=== PATIENT | female | born 1940 | race Caucasian/White ===

== ENCOUNTER 2016-05-29 09:19 | Emergency (ER) | payer OTHER ==
[~2016-05-29] VITALS: Ht 165.1 cm; Wt 88.6 kg
[~2016-05-29 09:19] MED LIST: ALBU8.5H3 INH; ASPI-515 PO; BUTA1CAP57 PO; CITA20TA9 PO; ESTR0.5T PO; LISI-167 PO; LOVA20TA2 PO; MEDR2.5T PO; PANT40TA3 PO; TURM500C7 PO
[2016-05-29 09:21] VITALS: BP 169/93
== END 2016-05-29 10:06 | disposition home or self-care (01) ==
LOC: ED 09:41
DX: T78.3XXA Angioneurotic edema, initial encounter (principal); I10 Essential (primary) hypertension; E78.00 Pure hypercholesterolemia, unspecified; K21.9 Gastro-esophageal reflux disease without esophagitis; X58.XXXA Exposure to other specified factors, initial encounter; Y93.89 Activity, other specified; Y92.89 Other specified places as the place of occurrence of the external cause; Y99.8 Other external cause status
CPT/HCPCS: 99283

== ENCOUNTER 2018-02-12 20:50 | Emergency (ER) | payer OTHER ==
[~2018-02-12] VITALS: Ht 157.5 cm; Wt 86.9 kg
[~2018-02-12 20:50] MED LIST changes: -ALBU8.5H3 INH; +ALBU8.5H8 INH
[2018-02-12] MEDS ORDERED: FAMOTIDINE 20 MG TABLET PO ONE (21:30)
[2018-02-12] MEDS ORDERED: DIPHENHYDRAMINE 25 MG CAPSULE PO ONE (21:30)
--- NOTE | 2018-02-12 22:06 | NUR ---
MD TO BEDSIDE FOR PT EVAL. PT REPORTS HAVING H/A, SAME PRIOR. PT HAS LONG HX OF MIGRAINES. PT DENIES TRAUMA OR INJURY. PT A/OX4, BREATHING E/U, CONVERSING WELL.
[2018-02-12] MEDS ORDERED: PROCHLORPERAZINE 5 MG/ML, 2ML IM ONE (22:30)
[2018-02-12] MEDS ORDERED: KETOROLAC 30 MG/1 ML IM ONE (22:30)
[2018-02-12] MEDS ORDERED: ACETAMINOPHEN 500 MG TABLET PO ONE (22:30)
[2018-02-12] MEDS ORDERED: KETOROLAC 30 MG/1 ML ONE (22:31)
[2018-02-12] MEDS ORDERED: PROCHLORPERAZINE 5 MG/ML, 2ML ONE (22:31)
[2018-02-12] MEDS ORDERED: ACETAMINOPHEN 500 MG TABLET ONE (22:32)
[2018-02-12 22:34] LABS: BASOPHILS % (AUTO) 1 % (0-1); EOSINOPHILS # (AUTO) 0.24 x10^3/uL (0-0.4); EOSINOPHILS % (AUTO) 3 % (1-7); LYMPHOCYTES # (AUTO) 2.35 x10^3/uL (1-3.4); LYMPHOCYTES % (AUTO) 27 % (22-44); MD NO; MEAN CORPUSCULAR HEMOGLOBIN 25.1 pg (27.0-34.8); MEAN CORPUSCULAR HGB CONC 32.4 g/dL (32.4-35.8); MEAN CORPUSCULAR VOLUME 77.7 fL (80-100); MEAN PLATELET VOLUME 8.6 fL (7.4-10.4); MONOCYTES # (AUTO) 0.79 x10^3/uL (0.2-0.8); MONOCYTES % (AUTO) 9 % (2-9); NEUTROPHILS # (AUTO) 5.28 x10^3/uL (1.8-6.8); NEUTROPHILS % (AUTO) 60 % (42-75); PLATELET COUNT 244 x10^3/uL (130-400); RED BLOOD COUNT 4.67 x10^6/uL (3.82-5.3); RED CELL DISTRIBUTION WIDTH 17.2 % (9.6-15.2)
--- NOTE | 2018-02-12 22:44 | NUR ---
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 PT RECIEVED MEDS PER ORDERS, SEE EMAR. PT RESTING COMFORTABLY, PLACED ON CARDIAC AND VS MONITORING. PT STATES SHE IS ALSO HAVING NUMBNESS TO MOUTH, TOES, AND FINGERS STARTING YESTERDAY. PT REPORTS SIMILAR NUMBNESS AND TINGLING WITH MIGRAINES IN THE PAST. PT A/OX4, BREATHING E/U. CONVERSING WELL. DENIES WEAKNESS. WILL CONTINUE TO MONITOR.
[2018-02-12 22:45] LABS: ALANINE AMINOTRANSFERASE 28 U/L (12-78); ALBUMIN 3.7 g/dL (3.4-5.0); ANION GAP 7 mmol/L (5-15); CALCIUM 8.4 mg/dL (8.5-10.1); CHLORIDE 112 mmol/L (98-107); CREATININE 0.88 mg/dL (0.55-1.02)
--- NOTE | 2018-02-12 22:46 | NUR ---
PT DRANK 1 CUP OF WATER WITH TYLENOL. WILL MONITOR FOR TOLERANCE.
[2018-02-12 22:49] LABS: ALKALINE PHOSPHATASE 130 U/L (45-117); BILIRUBIN,TOTAL 0.3 mg/dL (0.2-1.0); TOTAL PROTEIN 7.7 g/dL (6.4-8.2); TROPONIN I 0.037 ng/mL (0.000-0.045)
--- NOTE | 2018-02-12 23:05 | NUR ---
PT SITTING UP IN BED READING HER BOOK, NO DISTRESS NOTED. MONITORING CONTINUES.
[2018-02-12 23:51] VITALS: BP 153/89
== END 2018-02-12 23:57 | disposition home or self-care (01) ==
LOC: ED 22:53
DX: R51 Headache (principal); R20.8 Other disturbances of skin sensation; J45.909 Unspecified asthma, uncomplicated; K21.9 Gastro-esophageal reflux disease without esophagitis; F32.9 Major depressive disorder, single episode, unspecified; Z88.8 Allergy status to other drugs, medicaments and biological substances; F17.200 Nicotine dependence, unspecified, uncomplicated
CPT/HCPCS: 36415; 80053; 82330; 84484; 85025; 93005; 96372; 99284; J0780; J1885